=== PATIENT | female | born 1975 | race American Indian/Alaskan Native ===

== ENCOUNTER 2021-05-30 08:23 | Emergency (ER) | payer OTHER ==
[2021-05-30 08:32] VITALS: BP 107/72
--- NOTE | 2021-05-30 11:13 | Emergency Department Report ---
- General Chief Complaint: Upper Respiratory Infection Stated Complaint: NAUSEA Time Seen by Provider: 05/30/21 10:12 Source: patient Mode of arrival: Ambulatory Limitations: No Limitations - History of Present Illness Initial Comments: 46-year-old -[place] female presents to the emergency room for 1 week long complaint of decreased appetite, body aches nausea, cough fever with a T- max of 101. She states that she was exposed to Covid just prior to . Her symptoms started [place] Rosy. She states she is able to drink fluids. She is not vaccinated and has not tested for Covid. She denies any past medical history currently takes no meds has no primary care provider and is allergic to ampicillin. MD Complaint: fever, cough, rhinorrhea, nasal congestion - Related Data Previous Rx's Medication Instructions Recorded Last Taken Type Azithromycin [Zithromax Z-KARSTEN] 2,550 mg PO DAILY #6 tab 05/30/21 Unknown Rx Benzonatate [Tessalon Perles] 100 mg PO Q8HR PRN #21 capsule 05/30/21 Unknown Rx Prednisone [predniSONE 10 mg 10 mg PO .TAPER #1 tab.ds.pk 05/30/21 Unknown Rx (6-Day Pack, 21 Tabs)] Allergies Allergy/AdvReac Type Severity Reaction Status Date / Time No Known Allergies Allergy Verified 05/30/21 08:32 ED Review of Systems ROS: Stated complaint: NAUSEA Other details as noted in HPI ED Past Medical Hx - Past Medical History Previous Medical History?: No - Surgical History Past Surgical History?: No - Medications Home Medications: Home Medications Medication Instructions Recorded Confirmed Last Taken Type Azithromycin [Zithromax Z-KARSTEN] 2,550 mg PO DAILY #6 tab 05/30/21 Unknown Rx Benzonatate [Tessalon Perles] 100 mg PO Q8HR PRN #21 capsule 05/30/21 Unknown Rx Prednisone [predniSONE 10 mg 10 mg PO .TAPER #1 tab.ds.pk 05/30/21 Unknown Rx (6-Day Pack, 21 Tabs)] ED Physical Exam - General Limitations: No Limitations General appearance: alert, in no apparent distress - Head Head exam: Present: atraumatic, normocephalic - Eye Eye exam: Present: normal appearance - ENT ENT exam: Present: mucous membranes moist - Respiratory Respiratory exam: Present: other. Absent: respiratory distress (Crackles in the base of the lung), accessory muscle use - Cardiovascular Cardiovascular Exam: Present: regular rate, normal rhythm. Absent: systolic murmur, diastolic murmur, rubs, gallop - GI/Abdominal GI/Abdominal exam: Present: soft. Absent: distended, tenderness - Extremities Exam Extremities exam: Present: normal inspection - Back Exam Back exam: Present: normal inspection, full ROM - Neurological Exam Neurological exam: Present: alert, oriented X3, normal gait - Psychiatric Psychiatric exam: Present: normal affect, normal mood - Skin Skin exam: Present: warm, dry, intact, normal color. Absent: rash ED Course Vital Signs 05/30/21 08:31 Temperature 98.8 F Pulse Rate 94 H Respiratory 16 Rate Blood Pressure 107/72 O2 Sat by Pulse 97 Oximetry ED Medical Decision Making - Radiology Data Radiology results: report reviewed Study Comments [facility] [address] [place] [address] XRay Report Signed Patient: KIMI BUENROSTRO MR#: [id number] : 1975 Acct:[id number] Age/Sex: 46 / F ADM Date: 05/30/21 Loc: ED Attending Dr: Ordering Physician: SELMA PATEL Date of Service: 05/30/21 Procedure(s): XR chest routine 2V Accession Number(s): [id number] cc: SELMA PATEL Fluoro Time In Minutes: CHEST 2 VIEWS INDICATION / CLINICAL INFORMATION: sob,cough and crackles. COMPARISON: None available. FINDINGS: SUPPORT DEVICES: None. HEART / MEDIASTINUM: No significant abnormality. LUNGS / PLEURA: There are patchy bilateral pulmonary opacities. ADDITIONAL FINDINGS: No significant additional findings. IMPRESSION: 1. Patchy bilateral pulmonary opacities likely indicating multifocal pneumonia. Signer Name: Jose Lopez MD Signed: 05/30/2021 11:24 AM Workstation Name: [id number] Transcribed By: MIKAYLA Dictated By: Jose Lopez MD Electronically Authenticated By: Jose Lopez MD Signed Date/Time: 05/30/21 1124 DD/ 1123 TD/TT: - Medical Decision Making 46-year-old -[place] female presents to the emergency room for 1 week long complaint of decreased appetite, body aches nausea, cough fever with a T- max of 101. She states that she was exposed to Covid just prior to . Her symptoms started Rosy. She states she is able to drink fluids. She is not vaccinated and has not tested for Covid. She denies any past medical history currently takes no meds has no primary care provider and is allergic to ampicillin. Chest x-ray has been ordered as patient has crackles in her lower lung. Chest x-ray shows bibasilar pneumonia. Patient's been having symptoms for a week we will place her in a azithromycin benzonatate steroids. Recommend to increase her fluid intake. Also wrote a prescription for Zofran for the nausea. Follow-up with your primary care provider get Covid tested. Critical care attestation.: If time is entered above; I have spent that time in minutes in the direct care of this critically ill patient, excluding procedure time. ED Disposition Clinical Impression: Atypical pneumonia, Suspected severe acute respiratory syndrome coronavirus 2 (SARS-CoV-2) infection Disposition: HOME / SELF CARE / HOMELESS Is pt being admited?: No Does the pt Need Aspirin: No Condition: Stable Instructions: COVID-19 Frequently Asked Questions, Prevent the Spread of COVID- 19 if You Are Sick - [facility] [place] Additional Instructions: Your chest x-ray is consistent with Covid pneumonia. I am placing you on antibiotics as it is been almost a week that he is had symptoms. Understand that his antibiotic does not treat Covid. Retreating possible superimposed community-acquired pneumonia. I would like for you to complete the steroids as prescribed. Zofran as needed for nausea and vomiting. Tessalon Perles for cough. You need to quarantine for another 5 days follow-up with your primary care provider or return back to the emergency room if any worsening or new symptoms. Prescriptions: Prednisone [predniSONE 10 mg (6-Day Pack, 21 Tabs)] 10 mg PO .TAPER #1 tab.ds.pk Benzonatate [Tessalon Perles] 100 mg PO Q8HR PRN #21 capsule PRN Reason: Cough Azithromycin [Zithromax Z-KARSTEN] 2,550 mg PO DAILY #6 tab Referrals: MARIA FERNANDA CARMONA MD [Primary Care Provider] - 3-5 Days AURELIA JUAREZ MD [Staff Physician] - 3-5 Days Forms: Work/School Release Form(ED) Time of Disposition: 11:51
--- NOTE | 2021-05-30 11:28 | XRay Report ---
CHEST 2 VIEWS INDICATION / CLINICAL INFORMATION: sob,cough and crackles. COMPARISON: None available. FINDINGS: SUPPORT DEVICES: None. HEART / MEDIASTINUM: No significant abnormality. LUNGS / PLEURA: There are patchy bilateral pulmonary opacities. ADDITIONAL FINDINGS: No significant additional findings. IMPRESSION: 1. Patchy bilateral pulmonary opacities likely indicating multifocal pneumonia. Signer Name: Jose Lopez MD Signed: 05/30/2021 11:24 AM Workstation Name: [id number]
== END 2021-05-30 12:03 | disposition home or self-care (01) ==
LOC: ED 08:23
DX: J18.9 Pneumonia, unspecified organism (principal); Z20.822 Contact with and (suspected) exposure to COVID-19
CPT/HCPCS: 71046; 99283